=== PATIENT | female | born 1960 | race Caucasian/White ===

== ENCOUNTER 2016-08-13 11:12 | Outpatient (RCR) | payer BC | END 2016-09-30 10:24 | disposition home or self-care (01) | LOC: PT 11:12 → EDSTATUS 11:24 → PT 09-30 10:24 | DX: Z47.89 Encounter for other orthopedic aftercare (principal) ==

== ENCOUNTER → 2020-10-02 | Outpatient (CLI) | payer BC | LOC: LAB 12:40 | DX: U07.1 COVID-19 (principal) ==

== ENCOUNTER → 2023-08-13 | Outpatient (CLI) | payer BC ==
[2023-08-13 17:36] LABS: CALCIUM 9.3 mg/dL (8.3-10.5)
== END ==
LOC: LAB 17:01
DX: M21.41 Flat foot [pes planus] (acquired), right foot (principal)

== ENCOUNTER → 2023-12-31 | Outpatient (CLI) | payer BC ==
[2023-12-31 11:27] LABS: URINE WBC 0 /hpf (0-3)
[2023-12-31 11:43] LABS: BASO # 0.02 K/mm3 (0.02-0.10); EOS # 0.03 K/mm3 (0.04-0.40); EOS % 0.5 % (1.0-5.0); HEMATOCRIT 41.7 % (37.0-47.0); HEMOGLOBIN 13.9 g/dL (12.5-16.0); MEAN CELL VOLUME 98 fl (78-100); MEAN CORPUSCULAR HEMOGLOBIN 33 pg (27-31); MEAN CORPUSCULAR HGB CONC 33 g/dL (33-37); MEAN PLATELET VOLUME 9.2 fl (7.4-10.4); MONO # 0.41 K/mm3 (0.20-0.80); NEU # 4.05 K/mm3 (1.40-6.50); PLATELET COUNT 290 K/mm3 (130-400); RED BLOOD COUNT 4.24 M/mm3 (4.10-5.30); RED CELL DISTRIBUTION WIDTH 12.3 % (11.5-14.5); WHITE BLOOD COUNT 5.7 K/mm3 (4.8-10.8)
[2023-12-31 11:51] LABS: ALBUMIN 4.2 g/dL (3.4-4.8)
[2023-12-31 11:52] LABS: CALCIUM 10.7 mg/dL (8.3-10.5)
[2023-12-31 11:53] LABS: TOTAL PROTEIN 6.8 g/dL (6.2-8.1)
[2023-12-31 11:54] LABS: URINE APPEARANCE CLEAR (CLEAR); URINE BILIRUBIN NEGATIVE (NEGATIVE); URINE BLOOD NEGATIVE (NEGATIVE); URINE COLOR YELLOW (YELLOW); URINE GLUCOSE NEGATIVE (NEGATIVE); URINE KETONE NEGATIVE (NEGATIVE); URINE LEUKOCYTE ESTERASE NEGATIVE (NEGATIVE); URINE NITRATE NEGATIVE (NEGATIVE); URINE PROTEIN(semi-quant) NEGATIVE (NEGATIVE)
[2023-12-31 11:55] LABS: TOTAL BILIRUBIN 0.4 mg/dL (0.2-1.2)
[2023-12-31 12:00] LABS: MAGNESIUM 2.05 mg/dL (1.60-2.60)
== END ==
LOC: LAB 11:22
PROVIDERS: Internal Medicine
DX: Z00.00 Encounter for general adult medical examination without abnormal findings (principal)

== ENCOUNTER → 2024-02-27 | Outpatient (CLI) | payer BC ==
[2024-02-27 13:34] LABS: BASO # 0.02 K/mm3 (0.02-0.10); EOS # 0.05 K/mm3 (0.04-0.40); EOS % 0.7 % (1.0-5.0); HEMATOCRIT 42.2 % (37.0-47.0); HEMOGLOBIN 14.6 g/dL (12.5-16.0); LYMPH# 1.32 K/mm3 (1.50-4.00); MEAN CELL VOLUME 97 fl (78-100); MEAN CORPUSCULAR HEMOGLOBIN 33 pg (27-31); MEAN CORPUSCULAR HGB CONC 35 g/dL (33-37); MEAN PLATELET VOLUME 9.2 fl (7.4-10.4); MONO # 0.49 K/mm3 (0.20-0.80); PLATELET COUNT 252 K/mm3 (130-400); RED BLOOD COUNT 4.37 M/mm3 (4.10-5.30); RED CELL DISTRIBUTION WIDTH 12.4 % (11.5-14.5); WHITE BLOOD COUNT 6.7 K/mm3 (4.8-10.8)
[2024-02-27 13:41] LABS: ALBUMIN 4.1 g/dL (3.4-4.8); SODIUM 132 mmol/L (136-145)
[2024-02-27 13:43] LABS: CALCIUM 9.9 mg/dL (8.3-10.5)
[2024-02-27 13:44] LABS: GLUCOSE 100 mg/dL (65-105); TOTAL PROTEIN 6.7 g/dL (6.2-8.1)
[2024-02-27 13:45] LABS: CARBON DIOXIDE 22 mmol/L (23-31)
[2024-02-27 13:46] LABS: TOTAL BILIRUBIN 0.4 mg/dL (0.2-1.2)
[2024-02-27 13:49] LABS: AST-SGOT 25 U/L (5-34)
[2024-02-27 13:50] LABS: ALT/SGPT 26 U/L (0-55)
[2024-02-27 14:26] LABS: D-DIMER 1.09 mg/L FEU (0.15-0.50)
== END ==
LOC: LAB 13:15
PROVIDERS: Nurse Practitioner Family
DX: M79.604 Pain in right leg (principal)

== ENCOUNTER → 2024-05-24 | Outpatient (CLI) | payer BC | LOC: MAMMO 10:55 | DX: Z12.31 Encounter for screening mammogram for malignant neoplasm of breast (principal) ==

== ENCOUNTER 2024-10-19 10:22 | Emergency (ER) | payer BC ==
[~2024-10-19] VITALS: Ht 162.6 cm; Wt 72.3 kg
[2024-10-19] MEDS ORDERED: Iohexol 300 - 100 ML VIAL IV ONE (11:11)
[2024-10-19] MEDS ORDERED: NS 100 ML IV SCH (11:11)
[2024-10-19] MEDS ORDERED: EPITOL200 MG PO (11:13)
[2024-10-19] MEDS ORDERED: LOSARTAN POTASS1 TA1 PO (11:14)
[2024-10-19] MEDS ORDERED: NS 1,000 ML IV SCH (11:45)
[2024-10-19] MEDS ORDERED: ZOFRAN ODT4 MG PO (12:55)
[2024-10-19] MEDS ORDERED: KETOROLAC10 MG PO (12:55)
[2024-10-19 13:44] VITALS: BP 143/82
== END 2024-10-19 13:50 | disposition home or self-care (01) ==
LOC: ED 10:22
DX: R10.815 Periumbilic abdominal tenderness (principal); R10.816 Epigastric abdominal tenderness; R10.812 Left upper quadrant abdominal tenderness; R11.0 Nausea
CPT/HCPCS: J7030; Q9967

== ENCOUNTER → 2024-10-19 | Outpatient (CLI) | payer BC ==
[~2024-10-19] MED LIST: EPITOL200 MG PO; KETOROLAC10 MG PO; LOSARTAN POTASS1 TA1 PO; ZOFRAN ODT4 MG PO
[2024-10-19 09:14] LABS: BASO # 0.01 K/mm3 (0.02-0.10); EOS # 0.05 K/mm3 (0.04-0.40); EOS % 1.3 % (1.0-5.0); HEMOGLOBIN 13.8 g/dL (12.5-16.0); LYMPH# 1.04 K/mm3 (1.50-4.00); MEAN CELL VOLUME 100 fl (78-100); MEAN CORPUSCULAR HEMOGLOBIN 34 pg (27-31); MEAN CORPUSCULAR HGB CONC 34 g/dL (33-37); MEAN PLATELET VOLUME 9.1 fl (7.4-10.4); MONO # 0.26 K/mm3 (0.20-0.80); NEU # 2.44 K/mm3 (1.40-6.50); PLATELET COUNT 263 K/mm3 (130-400); RED BLOOD COUNT 4.11 M/mm3 (4.10-5.30); RED CELL DISTRIBUTION WIDTH 12.3 % (11.5-14.5); WHITE BLOOD COUNT 3.8 K/mm3 (4.8-10.8)
[2024-10-19 09:19] LABS: ALBUMIN 3.9 g/dL (3.4-4.8)
[2024-10-19 09:20] LABS: CALCIUM 8.8 mg/dL (8.3-10.5)
[2024-10-19 09:22] LABS: TOTAL PROTEIN 6.7 g/dL (6.2-8.1)
[2024-10-19 09:23] LABS: TOTAL BILIRUBIN 0.3 mg/dL (0.2-1.2)
[2024-10-19 09:27] LABS: DIRECT BILIRUBIN 0.2 mg/dL (0.0-0.5)
[2024-10-19 10:44] LABS: CLUE CELLS NOT OBSERVED (Not Observd)
== END ==
LOC: LAB 08:50
PROVIDERS: Registered Nurse
DX: R10.31 Right lower quadrant pain (principal); R10.2 Pelvic and perineal pain
CPT/HCPCS: Q0111